=== PATIENT | male | born 1945 | race Caucasian/White ===

== ENCOUNTER 2025-02-27 08:45 | Outpatient (CLI) | payer OTHER ==
[~2025-02-27] VITALS: Ht 172.7 cm; Wt 99.8 kg
[2025-02-27 09:16] VITALS: PULSE 73; RESP 18; O2SAT 97
[2025-02-27] MEDS: albuterol 2.5 MG/3 ML nebule NEB ONE (09:56)
[2025-02-27 10:04] VITALS: PULSE 74; RESP 18
[2025-02-27 10:50] LABS: LEUKOCYTE ESTERASE ,URINE SMALL (Neg); NITRITES, URINE POSITIVE (Neg); OCCULT BLOOD,URINE NEGATIVE (Neg)
[2025-02-27 10:53] LABS: UA COLLECTION TYPE NON-SPECIFIED
[2025-02-27 10:57] LABS: MUCUS STRANDS FEW /LPF (Neg); SQUAMOUS EPITHELIAL CELL,UR FEW /LPF (FEW)
[2025-02-27 11:13] LABS: CREATININE 3.35 MG/DL (0.60-1.10); TOTAL CARBON DIOXIDE 22.0 MMOL/L (24-32); eCRCL 17 ML/MIN; eGFR 18 ML/MIN
--- NOTE | 2025-02-28 15:45 | PROCEDURE NOTE - Respiratory ---
Procedure Note-Respiratory Providers to CC Copies To 1: LANNY GIBSON DO Procedure Name: This is a spirometry study dated February 27, 2025. The spirometry study was performed both before and after inhaled bronchodilator. Spirometry measurements: The forced vital capacity is mildly reduced. The FEV1 is normal. The FEV1 ratio is elevated. All of the measured flow rates are excellent. After inhaled bronchodilator there is not much change in the flow volume curve. The FEF maximum flow rates improved slightly with inhaled bronchodilator. Conclusion: This study shows mild abnormality. 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 There is not much evidence for obstructive airway disease based on this study. The patient's asthma appears to be under good control on the current medication. We have no previous studies for comparison. Continued use of albuterol inhaler is recommended. LEO DOMÍNGUEZ MD Feb 28, 2025 15:45
== END 2025-02-27 23:59 | disposition home or self-care (01) ==
LOC: RT 08:45
PROVIDERS: ATTEND Chiropractor
DX: J45.909 Unspecified asthma, uncomplicated (principal); E11.9 Type 2 diabetes mellitus without complications
CPT/HCPCS: 36415; 80053; 81001; 94060; 94760